=== PATIENT | male | born 1955 | race Caucasian/White ===

== ENCOUNTER 2020-06-04 01:44 | Outpatient (RCR) | payer MEDICARE, OTHER, SELFPAY ==
[2020-06-04] VITALS (7 sets, daily range): BP systolic 122–148; BP diastolic 82–93; PULSE 66–80; RESP 18–19; TEMP 37.3; O2SAT 96–99
[2020-06-04] MEDS: Normal Saline Flush 10 ML SYR IVP (10:16)
== END 2020-06-28 23:59 | disposition home or self-care (01) ==
LOC: INF 01:44
PROVIDERS: PCP Family Medicine; Visit Provider Nurse Practitioner Acute Care
DX: K50.90 Crohn's disease, unspecified, without complications (principal)
CPT/HCPCS: 96365; 96366; 96413; 96415; J1745

== ENCOUNTER 2020-08-26 01:31 | Outpatient (CLI) | payer MEDICARE, OTHER, SELFPAY ==
--- NOTE | 2020-08-26 | DI.DEXA_ITS ---
EXAM: XR DEXA BONE DENSITY W/WO LINDEN CLINICAL HISTORY: OSTEOPENIA, M85.88 TECHNIQUE: Routine DEXA evaluation of the lumbar spine, hip, or forearm. COMPARISON: No exams were available for comparison FINDINGS: Performed on a Hologic unit. Lateral image: No compression fracture evident. Lumbar Spine total T-score: -2.6 Hip total T-score:-1.5 Independent reading at femoral neck yields a T-score of -2.3 Forearm total T-score: -1.7 IMPRESSION: Bone mineral density measures in the osteoporosis range. Fracture risk is high Note: Any spine fracture indicates 5x risk for subsequent spine fracture and 2x risk for subsequent h ip fracture. World Health Organization criteria for BMD interpretation classify patients: Normal...... T- Score at or above -1.0 Osteopenic... T- Score between -1.0 and -2.5 Osteoporosis... T-Score at or below -2.5
== END 2020-08-26 01:51 ==
PROVIDERS: PCP Family Medicine; Visit Provider Internal Medicine Gastroenterology
DX: M81.0 Age-related osteoporosis without current pathological fracture (principal); M85.88 Other specified disorders of bone density and structure, other site
CPT/HCPCS: 77080

== ENCOUNTER 2021-05-24 03:10 | Outpatient (CLI) | payer MEDICARE, SELFPAY ==
[2021-05-24 21:51] LABS: COVID-19 RT-PCR UVMMC Result Negative (Negative)
== END 2021-05-24 03:11 | disposition home or self-care (01) ==
LOC: LBO 03:10
PROVIDERS: PCP Family Medicine; Visit Provider Family Medicine
DX: Z20.822 Contact with and (suspected) exposure to COVID-19 (principal)
CPT/HCPCS: 87635; U0003; U0005

== ENCOUNTER 2021-05-26 01:10 | Outpatient (RCR) | payer MEDICARE, SELFPAY | END 2021-05-31 23:59 | disposition home or self-care (01) | LOC: INF 01:10 | PROVIDERS: PCP Family Medicine; Visit Provider Family Medicine | DX: Z29.8 Encounter for other specified prophylactic measures (principal); K50.90 Crohn's disease, unspecified, without complications; Z92.22 Personal history of monoclonal drug therapy; Z23 Encounter for immunization | CPT/HCPCS: 96372; Q0220 ==

== ENCOUNTER 2021-07-05 04:14 | Outpatient (CLI) | payer MEDICARE, SELFPAY ==
[2021-07-06 02:11] LABS: COVID-19 RT-PCR UVMMC Result Negative (Negative)
== END 2021-07-05 04:15 | disposition home or self-care (01) ==
LOC: LBO 04:14
PROVIDERS: PCP Family Medicine; Visit Provider Family Medicine
DX: Z20.822 Contact with and (suspected) exposure to COVID-19 (principal)
CPT/HCPCS: U0003; U0005

== ENCOUNTER 2021-07-07 01:42 | Outpatient (RCR) | payer MEDICARE, SELFPAY | END 2021-07-29 23:59 | disposition home or self-care (01) | LOC: INF 01:42 | PROVIDERS: PCP Family Medicine; Visit Provider Family Medicine | DX: Z92.25 Personal history of immunosuppression therapy (principal) | CPT/HCPCS: 96372; Q0221 ==